=== PATIENT | male | born 1975 | race Caucasian/White ===

== ENCOUNTER → 2023-04-25 09:54 | Outpatient (BNVA) | payer OTHER, SELFPAY | PROVIDERS: Visit Provider Registered Nurse | DX: R06.02 Shortness of breath (principal); Z12.5 Encounter for screening for malignant neoplasm of prostate; R53.83 Other fatigue | CPT/HCPCS: 80053; 80061; 84403; 85025; G0103 ==

== ENCOUNTER 2023-10-16 11:41 | Inpatient (IN) | payer SELFPAY ==
[2023-10-16] VITALS (34 sets, daily range): BP systolic 91–154; BP diastolic 54–94; PULSE 75–98; RESP 12–21; TEMP 36.5–36.9; O2SAT 90–97; BMI 28.7; BMI 31.1
--- NOTE | 2023-10-16 11:43 | ECG_ITS ---
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 Measurements Intervals [place] Rate: 93 P: 48 IA: 145 QRS: 28 QRSD: 90 T: 8 QT: 307 QTc: 383 Interpretive Statements SINUS RHYTHM POSSIBLE INFERIOR MYOCARDIAL INFARCTION , OF INDETERMINATE AGE [30 ms Q WAVE IN II/aVF] No previous ECG available for comparison Electronically Signed On 10-17-2023 8:49:00 AIR PRESS OPERATOR by Nasir Aragon M.D. [id number]
--- NOTE | 2023-10-16 11:49 | XRR_ITS ---
PROCEDURE INFORMATION: Exam: XR Chest Exam date and time: 10/16/2023 12:02 PM Age: 48 years old Clinical indication: Pain; Chest pressure; Additional info: Cp TECHNIQUE: Imaging protocol: Radiologic exam of the chest. Views: 1 view. COMPARISON: No relevant prior studies available. FINDINGS: Lungs: Unremarkable. No consolidation. Pleural spaces: Unremarkable. No pleural effusion. No pneumothorax. Heart/Mediastinum: Unremarkable. No cardiomegaly. Bones/joints: Unremarkable. XR/XR chest 1V portable [id number] IMPRESSION: No acute findings.
--- NOTE | 2023-10-16 11:57 | ECG_ITS ---
[facility] Test Date: 2023-10-16 Pat Name: Meño Smyth Department: Room: 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 Measurements Intervals [place] Rate: 101 P: 55 MT: 164 QRS: 37 QRSD: 89 T: 22 QT: 302 QTc: 393 Interpretive Statements SINUS TACHYCARDIA NONSPECIFIC ST & T-WAVE ABNORMALITY Compared to ECG 10/16/2023 11:43:34 T-wave abnormality now present Sinus rhythm no longer present Myocardial infarct finding no longer present Electronically Signed On 10-17-2023 8:48:51 AUTO HAULER by Nasir Aragon M.D. [id number]
[2023-10-16] MEDS: clopidogrel 300 mg Tablet 600 MG PO (11:59)
[2023-10-16] MEDS: aspirin 325 mg Tablet PO (12:00)
--- NOTE | 2023-10-16 12:01 | ED_ITS ---
HPI - Chest Pain 2 General: Chief Complaint: Chest Pain Stated Complaint: chest pains, sob Time Seen by Provider: 10/16/23 11:53 Source: patient Mode of arrival: ambulatory Limitations: no limitations History of Present Illness: 48-year-old male states that he had some chest pains over the last week states that today his 's car broke down he was work on started having worsening chest pain that radiated to his jaw he states it is improved but still having a slight pain he rates it a 2 out of 10 no history of heart disease he is a smoker. Associated symptoms: Deny abdominal pain, dyspnea, fever(s), nausea or vomiting Review of Systems 2 Const: Denies: fever(s), chills, body aches or change in appetite ENMT: Denies: throat pain or dental pain Card: Reports: chest pain Resp: Denies: dyspnea GI: Denies: abdominal pain, nausea, vomiting or diarrhea Musc: Denies: neck pain or back pain Skin/Breast: Denies: rash Neuro: Denies: headache(s) PFSH ED 2 PFSH: Medical History Family history of prostate cancer in father Family History Father Cancer Diabetes Mother Lung disease Denies family history of Hyperlipidemia Chronic kidney disease (CKD) Stroke Social History Smoking and tobacco/nicotine status: current every day tobacco/nicotine user Alcohol intake: current Alcohol intake frequency: holidays/special occasions only Substance/Drug Use: never Adopted: No Caregiver/support person: No Lives independently: No Household members: spouse Marital status: service: No Current occupational status: employed Sexually active: Yes Do you think of yourself as: Straight/Heterosexual Current gender identity: Male Physical Exam 2 Const: COMMON NORMALS: patient oriented x3 HENMT: COMMON NORMALS: normocephalic and atraumatic HEAD & SCALP: n ormocephalic and atraumatic Neck/C-Spine: COMMON NORMALS: full ROM and supple Chest: COMMONS NORMALS: normal inspection of the chest Resp: COMMON NORMALS: normal respiratory effort Cardio: COMMON NORMALS: regular rate, regular rhythm and No murmurs present (Cardio) RATE: regular rate RHYTHM: regular rhythm GI: COMMON NORMALS: Normal to inspection, nondistended, normoactive bowel sounds present, Soft to palpation, non-tender and no masses PALPATION: Yes Soft to palpation Extremity: COMMON NORMALS: normal to inspection and full ROM Neuro: COMMON NORMALS: patient oriented x3, moves all extremities and no focal motor deficits Psych: COMMON NORMALS: mental status grossly normal, Normal thought process present and cooperative THOUGHT PROCESS: Normal thought process present Skin: COMMON NORMALS: no rashes or lesions noted and no wounds GENERAL SKIN EXAM: no rashes or lesions noted Course 2 Vital Signs: Vital signs: Vital Signs Temperature 98.2 F 10/16/23 11:53 Pulse Rate 93 10/16/23 11:53 Respiratory Rate 14 10/16/23 11:53 Blood Pressure 154/94 10/16/23 11:53 Pulse Oximetry 95 10/16/23 11:53 Oxygen Delivery Me thod Room Air 10/16/23 11:53 MDM - Chest Pain Medical Decision Making Patient presents here with an ST elevation [place] Float Phlebotomist was activated patient given aspirin heparin and Plavix and will go to the Float Phlebotomist. Medical Records I reviewed the patient's medical records. Lab Data I reviewed the patient's lab results. 10/16/23 11:58 10/16/23 11:58 All radiology interpretation(s) finalized by discharge EKG Data EKG 1: I personally reviewed and interpreted this EKG as follows: EKG interpretation date: 10/16/23 EKG interpretation time: 11:43 Interpretation: nsr hr [address] or t wave abnormalities qrs 90 qtc 358 Discharge Plan Discharge Patient Disposition: Admitted As Inpatient Clinical Impression: ST elevation myocardial infarction (STEMI) Condition: Stable Prescriptions: No Action fluticasone propion-salmeterol [Advair HFA] 115-21 mcg/actuation HFA aerosol inhaler 2 puff inhalation BID 30 Days Qty: 12 2RF Rx Instructions: call if not affordable sulfamethoxazole-trimethoprim [Bactrim DS] 800-160 mg tablet 1 tab PO BID 7 Days Qty: 14 0RF Referrals: Mari Miguel FNP [Primary Care Provider] - Coding Level of Care Code ED Heel Seat Fitter Machine for [facility] Molly
[2023-10-16 12:02] LABS: Basophils # 0.1 10^3/uL (0.0-0.1); Basophils % 0.8 %; Eosinophils # 0.3 10^3/uL (0.0-0.8); Eosinophils % 1.7 %; Hematocrit 44.6 % (37-53); Lymphocytes # 4.1 10^3/uL (0.8-4.8); Lymphocytes % 26.7 %; Mean Corpuscular Hemoglobin 31.8 pg (27-33); Mean Platelet Volume 8.5 fL (7.4-10.4); Monocytes # 2.1 10^3/uL (0.2-0.9); Monocytes % 13.8 %; Neutrophils # 8.76 10^3/uL (1.8-7.7); Neutrophils % 56.5 %; Nucleated Red Blood Cells % 0 %; Platelet Count 354 10^3/cmm (157-399); Red Cell Distribution Width 12.4 % (12.1-15.1); White Blood Count 15.48 10^3/uL (3.29-11.43)
[2023-10-16] MEDS: heparin 5,000 unit/mL INJ 1 mL 4000 UNIT IVP (12:03)
--- NOTE | 2023-10-16 12:08 | P.HP_ITS ---
Providers/Chief Complaint 2 Admitting Physician: Nasir Aragon MD/ Interventional cardiology Primary Care Provider: SAMIR Wilson Chief Complaint: chest pains, sob History of Present Illness Meño Smyth is a 48 year old male with no significant prior cardiac history has presented to hospital with 1 hour of severe substernal chest pain rating to the jaw. It started when he was working on his car. EKG performed in the ER showing ST elevation in anterior/anterolateral leads. Nonspecific ST changes are seen in inferior leads as well. He says that chest pain has improved. Review of Systems 2 Const: Denies: fever(s), chills, body aches or change in appetite ENMT: Denies: throat pain or dental pain Card: Reports: chest pain Resp: Denies: dyspnea GI: Denies: abdominal pain, nausea, vomiting or diarrhea Musc: Denies: neck pain or back pain Skin/Breast: Denies: rash Neuro: Denies: headache(s) Medications/Allergies Home Medications Medication Instructions Recorded Confirmed Last Taken Type fluticasone propionate 115 2 puff inhalation BID 30 days #12 04/25/23 05/31/23 Unknown Rx mcg-salmeterol 21 mcg/actuation grams HFA inhaler (Advair HFA) sulfamethoxazole 800 1 tab PO BID 7 days #14 tabs 05/31/23 05/31/23 Unknown Rx mg-trimethoprim 160 mg tablet (Bactrim DS) Allergies Allergy/AdvReac Type Severity Reaction Status Date / Time codeine Allergy temp Verified 10/16/23 11:53 Penicillins Allergy Unknown Verified 10/16/23 11:53 PFSH Acute 2 PFSH: Medical History Family history of prostate cancer in father Family History Father Cancer Diabetes Mother Lung disease Denies family history of Hyperlipidemia Chronic kidney disease (CKD) Stroke Social History Smoking and tobacco/nicotine status: current every day tobacco/nicotine user Alcohol intake: current Alcohol intake frequency: holidays/special occasions only Substance/Drug Use: never Adopted: No Caregiver/support person: No Lives independently: No Household members: spouse Marital status: service: No Current occupational status: employed Sexually active: Yes Do you think of yourself as: Straight/Heterosexual Current gender identity: Male Vitals/I&O/Wt Last Vital Signs Temp 98.2 F 10/16/23 11:53 Pulse 98 10/16/23 12:04 Resp 18 10/16/23 12:04 BP 146/89 10/16/23 12:04 Pulse Ox 96 10/16/23 12:04 O2 Del Method Room Air 10/16/23 12:04 Weight last 48 hrs Weight 200 lb Physical Exam 2 Narrative: GENERAL: Patient is alert, awake and oriented x3. [] NECK: No jugular vein distension. [] HEENT: No cyanosis. No icterus. No pallor. [] HEART: Regular S1 and S2. No murmur, rub or gallop. [] LUNGS: Clear to auscultate bilaterally. [] CENTRAL NERVOUS SYSTEM: Grossly nonfocal. [] EXTREMITIES: Lower extremities with no edema bilaterally. Data 10/16/23 11:58 10/16/23 11:58 A&P Assessment and plan (1) ST elevation myocardial infarction (STEMI): Plan Patient has presented with chest pain and EKG is consistent with anterior ST elevation FL. Inferior leads also have equivocal changes. Will emergently take patient to cardiac Dairy Helper. Aspirin and Plavix loaded. IV heparin bolus given. We will order echocardiogram. Attestations 2 Medical Necessity Statement*: Care expected to cross 2 midnights. Patient has presented with ST elevation FL and will be taken to cardiac laborer filter plant emergently. Coding Level of Care Code Acute Code for [facility] Molly Diagnoses ST elevation myocardial infarction (STEMI) I21.3
--- NOTE | 2023-10-16 12:09 | PC.NURSE ---
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 c/o pain radiating into both sides of jaw, both arms. reports headache as his only associated symptom. bilateral radial pulse 3+. skin pwd. chest pain 0/10 at this time.
--- NOTE | 2023-10-16 12:11 | XACV_ITS ---
Ht: 178 cm Wt: 91 kg BSA: 2.14 m2 Gender: Male : 1975 Any Known Allergies: Penicillins Exam Priority: Routine Indication(s): - Acute DC with elevated troponin Procedure(s): Procedure Description: Diagnostic procedure Procedure Description: PCI procedure Procedure Description: Drug Eluting Coronary Stent Procedure Description: PTCA Procedure Description: Miscellaneous Procedure Description: ACT Procedure Description: Coronary Angiography Diagnostic Cath Status: Emergency Diagnostic Findings * Left Main has no significant disease. * Circumflex has mild luminal irregularities. * 1st Diagonal: significant 80% stenosis, OCTAVIO: 3 flow. This is large sized artery. Dual LAD system. * Posterior Descending Right: total thormbotic occlusion, OCTAVIO: 0 flow. * Mid Left Anterior Descending: significant 80% stenosis, OCTAVIO: 3 flow. * Coronary angiography shows right dominance. PCI Status: Emergency PCI Indication: Immediate PCI for STEMI Interventional Findings * Procedure detail: As more significant EKG changes were in the LAD system, we first engaged left main artery however because as there was flow present in all vessels, we switched to RCA immediately. We engaged RCA with JR4 guide catheter. IV heparin was administered to maintain anticoagulation. 0.014 run-through guidewire was used to cross totally occluded PDA. This was followed by predilation with a 2.25 x 12 mm semicompliant balloon. We then placed 2.25 x 15 mm resolute [place] drug-eluting stent. At this time final angiogram showed excellent stent expansion, no residual stenosis and OCTAVIO-3 flow. We then turned our attention to LAD and diagonal artery stenosis. 0.014 run-through guidewire was used to cross the LAD stenosis. Another wire was used to cross the diagonal artery stenosis. We placed a 2.5 x 15 mm resolute [place] drug-eluting stent in mid LAD. We then placed 2.75 x 26 mm resolute [place] drug eluting stent from LAD into diagonal artery. This was followed by post dilation of proximal segment of stent with 3.0 x 8 mm NC balloon. At this time final angiogram was performed that showed excellent stent expansion, OCTAVIO-3 flow and no residual stenosis. Guidewire and guide catheter were removed. Patient left the Human Resources Analyst in a stable condition.. * Mid Left Anterior Descendin% stenosis treated with a MDT R HENRIET[place] 2.5X15 ROMAN. 0% residual stenosis, OCTAVIO: 3 flow. * 1st Diagonal: 80% stenosis treated with a MDT R HENRIETTA 2.75X26 ROMAN, and MDT NC EUPHORA RX 3.12Y24TV BALLOON. 0% residual stenosis, OCTAVIO: 3 flow. * Posterior Descending Right: 100% stenosis treated with a AB TREK 2.25X12 RX BALLOON, and MDT R HENRIETTA 2.25X15 ROMAN. 0% residual stenosis, OCTAVIO: 3 flow. Conclusions 1. Total thrombotic occlusion of PDA s/p successful revascularization with 1 stent. Severe stenosis of mid LAD s/p successful revascularization with 1 stent. Severe stenosis of large sized diagonal artery s/p successful revascularization with 1 stent.. 2. Mid Left Anterior Descending was treated with a Drug Eluting Stent. 3. 1st Diagonal was treated with a Drug Eluting Stent, and Balloon. 4. Posterior Descending Right was treated with a Balloon, and Drug Eluting Stent. Recommendations * Transfer to ICU. * Dual antiplatelet therapy with aspirin and plavix. * High intensity statin therapy. * Outpatient cardiology follow up in 4 weeks. Interventional RX Recommendation: PCI w/o planned CABG Diagnostic RX Recommendation: PCI w/o planned CABG Anticoagulation: Heparin Pressures Phase:Rest AO : 88 / 66 ( 80 ) @ 12:32:00 PM 103 / 89 ( 97 ) @ 12:37:00 PM 116 / 77 ( 96 ) @ 12:39:00 PM 100 / 80 ( 91 ) @ 12:43:00 PM 86 / 71 ( 79 ) @ 12:51:00 PM 103 / 70 ( 84 ) @ 1:09:00 PM 91 / 73 ( 83 ) @ 1:20:00 PM Clinical Evaluation EBL: 5mL-10mL Procedural Details Procedure Consent Obtained. Pre-Procedure Time Out. Identified patient by full name and date of as verbalized by the patient/guarantor. Does the consent match the physician's order: N/A Emergent; Informed Consent not obtained due to time critical life threat. Accurate & Complete Informed Consent: N/A Emergent; Informed Consent not obtained due to time critical life threat. Inpatient/Outpatient History & Physical on Chart: N/A Emergent; Informed Consent not obtained due to time critical life threat. If H&P is completed, is and addenduem needed: N/A Emergent; Informed Consent not obtained due to time critical life threat; If yes, is the addendum complete: N/A Emergent; Informed Consent not obtained due to time critical life threat. Visualize and Verify Site with Patient/Guarantor: N/A. Relevant Radiology Images available: N/A Emergent; Informed Consent not obtained due to time critical life threat. The risks, benefits, and alternatives of sedation and/or procedure were discussed by physician. The patient agrees to continue. Procedure started. [facility] Clinical Fraility Score: 3: Managing Well. Human Resources Analyst Indications: ACS <= 24 hours. Chest Pain Symptom Assessment: Typical Angina Symptoms. Cardiovascular Instability: Yes, if yes, Persistant Ischemic Symptoms. Correct patient, site and procedure confirmed by cath team. Current diagnosis: STEMI. PERRLA. Strong, equal hand surveillance sensor operator bilaterally. Lungs clear x 5 lobes. IV Site on Arrival: 20 gauge in the right forearm. IV Site on Arrival: 18 gauge in the right anticubital. IV Site on Arrival: 18 gauge in the left anticubital. IV Fluids: 0.9% NaCl at KVO. 0 mL infused prior to labor union business representative. Pre Procedural Pulses: bilateral radial was 3+. Oxygen started at 2liters/min via nasal canula. right groin was prepped with chloroprep then draped in the usual sterile fashion. right radial was prepped with chloroprep then draped in the usual sterile fashion. Physician notified. Baseline sample Acquired. HR: 94 BPM. Patient's family in the labor union business representative waiting room. Dr. Aragon will update at the completion of the procedure. Equipment: 6F - Radial. Cardiac Cath Pack. ACIST Manifold Kit Model BT 2000. Heparinized Saline (2 units/mL), 1000 mL bag. Physician arrived. Physician scrubbed in. Immediate Pre-Procedure Time Out. Correct Patient: N/A Emergent; Informed Consent not obtained due to time critical life threat; Correct Procedure: N/A Emergent; Informed Consent not obtained due to time critical life threat; Correct Site: N/A Emergent; Informed Consent not obtained due to time critical life threat; Correct Patient Position: N/A Emergent; Informed Consent not obtained due to time critical life threat; Correct Supplies: N/A Emergent; Informed Consent not obtained due to time critical life threat; Dried Flammable Prep: N/A Emergent; Informed Consent not obtained due to time critical life threat; Blood Products Available: N/A Emergent; Informed Consent not obtained due to time critical life threat;. Lidocaine 1% infiltrated to the right radial. Arterial access obtained. 6 vietnamese XB 3.5 guide catheter was inserted over the exchange J wire. Cine of the LCA performed. AP pads placed on the patient. Guide catheter out over the exchange J wire. A 5 vietnamese JR4 catheter in over the exchange J wire. Multiple views taken of right coronary artery. Catheter removed over the exchange J wire. 6 vietnamese JR 4 guide catheter was inserted over the exchange J wire. Runthrough guidewire was advanced through the guide catheter to lesion in the PDA. Critical troponin of 343 was received from the lab. Dr. Aragon was notified with no new orders received. A 2nd Runthrough guidewire was advanced through the guide catheter to lesion in the distal RCA. Inflation number : 1 A AB TREK 2.25X12 RX BALLOON was prepped and advanced across the R PDA , then inflated to 8 JULIO for 0:10 seconds. Inflation number: 2 The AB TREK 2.25X12 RX BALLOON was reinflated across the R PDA, to 10 JULIO for 0:10 seconds. Balloon out. Results checked. PCI Indication : Immediate PCI for STEMI. Inflation Number : 3 A MDT R HENRIETTA 2.25X15 ROMAN -Lot Number# [id number] was prepped and advanced across the R PDA. The stent was deployed at 12 JULIO for 0:17 seconds. Exp . Results checked. Both guidewires out. ACT drawn. Results out of range high. Guide catheter out over the exchange J wire. Unable to further use right radial access site due to spasm. Will move to groin access. Lidocaine 1% infiltrated to the right groin. Arterial access obtained with micropuncture set. 6 vietnamese XB 3.5 guide catheter was inserted over the exchange J wire. Multiple views taken of left coronary artery. Runthrough guidewire was advanced through the guide catheter to lesion in the diaganol. A 2nd Runthrough guidewire was advanced through the guide catheter to lesion in the mid LAD. Inflation Number : 1 A MDT R HENRIETTA 2.5X15 ROMAN -Lot Number# [id number] was prepped and advanced across the Mid LAD. The stent was deployed at 12 JULIO for 0:28 seconds. Exp . Stent balloon out over wire. Mid LAD Runthrough wire out. Inflation number: 2 The stent balloon was then re-inflated across the Mid LAD to 12 JULIO for 0:28 seconds. Inflation Number : 1 A MDT R HENRIETTA 2.75X26 ROMAN -Lot Number# [id number] was prepped and advanced across the 1st Diag. The stent was deployed at 12 JULIO for 0:13 seconds. Exp . Stent balloon and wire out. Results checked. Inflation number : 2 A MDT NC EUPHORA RX 3.26H53EW BALLOON was prepped and advanced across the 1st Diag , then inflated to 14 JULIO for 0:12 seconds. Balloon out. Wire out. Results checked. ACT drawn. Results out of range high. Will redraw. Guide catheter out over the exchange J wire. A 5 vietnamese JR4 catheter in over wire. Cine of the RCA performed. A Right femoral angiogram was performed to determine safe placement of closure device. A TR Band was successful obtaining hemostatsis at the Right Radial artery insertion site. A Suture was successful obtaining hemostatsis at the Right Femoral artery insertion site. Sheath(s) sutured into position with 2-0 silk and sterile 4x4's and Op-site applied over the site. No oozing or signs and symptoms of hematoma noted. Arterial sheath flushed and connected to tranducer and pressure bag with heparinized saline. Post Procedure: bilateral dorsalis pedis pulse Doppled. Post Procedure: bilateral posterior tibial pulse Doppled. Post Procedure: bilateral radial pulse 3+. PERRLA. Strong, equal hand surveillance sensor operator bilaterally. No VTE prophylaxis required. Post-op diagnosis: Total thrombotic occlusion of the right PDA s/p PCI with one stent. Severe stenosis of the mid LAD and Diagonal s/p PCI with one stent to each vessel. Complications: none. Estimated blood loss: 5mL-10mL. Responsiveness - Normal response to verbal stimuli; alert and oriented, PERRLA. Airway - Unaffected, no intervention required; spontaneous ventilation. Circulation: W/N/L, pulses unchanged. Nausea/Vomiting: No. PCI Indication: STEMI. ACT drawn. Results 215 seconds. Therapeutic limits - pre-heparin administration 90-150 seconds and monitoring heparin during a vascular procedure >250 seconds. ACT drawn. Results 196 seconds. Therapeutic limits - pre-heparin administration 90-150 seconds and monitoring heparin during a vascular procedure >250 seconds. Medication's Wasted: Nitro = 49.2 mg. Medication's Wasted: Heparin = 1000 units. Medication's Wasted: Other = Versed 1 mg. Medication's Wasted: Other = Fentanyl 50 mcg. Total IV fluids: 350 mL. Procedure completed. Patient transferred by bed to ICU. Vital chart was stopped. Access Site Site: Right Radial artery Sheath Size: 6 Fr Hemostasis Method: TR Band Hemostasis Success: Successful Site: Right Femoral artery Sheath Size: 6 Fr Hemostasis Method: Suture Hemostasis Success: Successful Procedure Medications Start: 12:27 PM Stop: 12:27 PM Medication: Versed Amount: 1 mg Route: I.V. Start: 12:27 PM Stop: 12:27 PM Medication: Fentanyl Amount: 25 mcg Route: I.V. Start: 12:29 PM Stop: 12:29 PM Medication: Nitrogylcerin Amount: 200 mcg Route: I.A. Start: 12:30 PM Stop: 12:30 PM Medication: Heparin Amount: 5000 units Route: I.V. Start: 12:31 PM Stop: 12:31 PM Medication: Versed Amount: 1 mg Route: I.V. Start: 12:38 PM Stop: 12:38 PM Medication: Fentanyl Amount: 25 mcg Route: I.V. Start: 12:42 PM Stop: 12:42 PM Medication: Versed Amount: 1 mg Route: I.V. Start: 12:51 PM Stop: 12:51 PM Medication: Versed Amount: 1 mg Route: I.V. Start: 12:51 PM Stop: 12:51 PM Medication: Fentanyl Amount: 25 mcg Route: I.V. Start: 12:51 PM Stop: 12:51 PM Medication: Heparin Amount: 1000 units Route: I.V. Start: 12:54 PM Stop: 12:54 PM Medication: Nitrogylcerin Amount: 200 mcg Route: I.A. Start: 12:55 PM Stop: 12:55 PM Medication: Fentanyl Amount: 25 mcg Route: I.V. Start: 12:57 PM Stop: 12:57 PM Medication: Verapamil Amount: 5 mg Route: I.A. Start: 12:57 PM Stop: 12:57 PM Medication: 0.9% Saline Amount: 250 ml Route: I.V. bolus Start: 12:59 PM Stop: 12:59 PM Medication: Nitrogylcerin Amount: 200 mcg Route: I.A. Start: 1:08 PM Stop: 1:08 PM Medication: Versed Amount: 1 mg Route: I.V. Start: 1:21 PM Stop: 1:21 PM Medication: Fentanyl Amount: 25 mcg Route: I.V. Start: 1:28 PM Stop: 1:28 PM Medication: Nitrogylcerin Amount: 200 mcg Route: I.C. Start: 1:29 PM Stop: 1:29 PM Medication: Fentanyl Amount: 25 mcg Route: I.V. Start: 1:46 PM Stop: 1:46 PM Medication: Heparin Amount: 2000 units Route: I.V. I, the attending physician, have reviewed and verified all procedure medications. Yes, all medications given per verbal order Report Signatures Finalized by Nasir Aragon MD on 10/26/2023 12:22 PM
--- NOTE | 2023-10-16 12:20 | PC.NURSE ---
pt to labor expediter [id number]
[2023-10-16 12:24] LABS: Alanine Aminotransferase 24 U/L (0-41); Albumin Level 4.1 g/dL (3.5-5.2); Alkaline Phosphatase 61 U/L (40-130); Aspartate Amino Transferase 36 U/L (0-40); Blood Urea Nitrogen 10 mg/dL (6-20); Calcium 9.2 mg/dL (8.5-10.5); Carbon Dioxide 23 mmol/L (22-29); Chloride 102 mmol/L (98-107); Creatinine Clr Calc Pharmacy 111.2322; Globulin 3.1 g/dL (1.3-4.6); Glomerular Filtration Rate 89.3 mL/min (90-130); Glucose 97 mg/dL (65-115); Lipase 56 U/L (13-60); Osmolality Calculated 283 mOsm/kg (285-295); Sodium 137 mmol/L (136-145); Total Bilirubin 0.4 mg/dL (0.15-1.2); Total Protein 7.2 g/dL (6.6-8.7)
--- NOTE | 2023-10-16 12:25 | PC.PHAR ---
pts verified pts medications-states the pt uses his advair prn and not other prescription medications only the otcs entered
[2023-10-16 12:41] LABS: Troponin(5th) Baseline 343 ng/L (0-15)
--- NOTE | 2023-10-16 14:11 | ECG_ITS ---
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 Measurements Intervals [place] Rate: 85 P: 63 LA: 167 QRS: 6 QRSD: 85 T: -22 QT: 336 QTc: 402 Interpretive Statements SINUS RHYTHM WITH SINUS ARRHYTHMIA NONSPECIFIC T-WAVE ABNORMALITY Compared to ECG 10/16/2023 11:43:34 T-wave abnormality now present Myocardial infarct finding no longer present Electronically Signed On 10-17-2023 9:36:59 HAND REAMER by Nasir Aragon M.D. [id number]
--- NOTE | 2023-10-16 14:12 | CTR_ITS ---
PROCEDURE INFORMATION: Exam: CT Head With Contrast Exam date and time: 10/16/2023 2:28 PM Age: 48 years old Clinical indication: Altered mental status/memory loss; Additional info: Rule out bleed TECHNIQUE: Imaging protocol: Computed tomography of the head with intravenous contrast. Radiation optimization: All CT scans at this facility use at least one of these dose optimization techniques: automated exposure control; mA and/or kV adjustment per patient size (includes targeted exams where dose is matched to clinical indication); or iterative reconstruction. COMPARISON: No relevant prior studies available. RADIATION DOSE METRICS: Total DLP (mGy-cm): 1097.28 FINDINGS: Brain: The examination is performed after contrast has been administered intravascularly. Therefore, this is a CT of the brain with contrast. No images of the brain prior to contrast administration are provided. There is no obvious large intracranial hemorrhage causing mass effect, but the visualized contrast makes it difficult to exclude a subtle acute intracranial hemorrhage by this CT. There is no pathologic contrast enhancement. No CT evidence of mass effect or acute infarct. Normal ward-white matter differentiation. Otherwise, unremarkable. Cerebral ventricles: Unremarkable. No ventriculomegaly. Bones/joints: Unremarkable. No acute fracture. Paranasal sinuses: Moderate sinusitis. Mastoid air cells: Visualized mastoid air cells are well aerated. Soft tissues: Unremarkable. CT/CT head wo con* [id number] IMPRESSION: 1. Moderate sinusitis. 2. Otherwise, negative contrast-enhanced CT of the brain. See above disclaimer regarding intracranial hemorrhage.
[2023-10-16] MEDS: fentaNYL 50 mcg/mL INJ 2mL 25 MCG IVP (14:16)
--- NOTE | 2023-10-16 14:28 | PM.MISC ---
Miscellaneous Note Purpose of Documentation: Brief note Note: Patient had emergent cardiac cath that showed total thrombotic occlusion of PDA s/p PCI with 1 stent. Mid LAD has severe 70-80% stenosis s/p PCI with 1 stent. Large sized diagonal artery has severe stenosis s/p PCI with 1 stent. During the procedure patient started complaining of headache, that got worse when he came to ICU. He says it is 8/10 in intensity. Also has some chest discomfort that was present during the procedure however coronary arteries were patent. RCA was checked again at the end to ensure that stent is patent and is not the reason for chest pain EKG in the ICU is showing no significant changes from before. Given severe headache, ordered stat CT head to rule out bleed. We will also obtain CTA chest to rule out aortic dissection. Family updated.
--- NOTE | 2023-10-16 14:29 | CTR_ITS ---
PROCEDURE INFORMATION: Exam: CTA Chest With Contrast Exam date and time: 10/16/2023 2:33 PM Age: 48 years old Clinical indication: Other: Chest/abdomin; Chest wall pain; Additional info: Post cath chest pain TECHNIQUE: Imaging protocol: Computed tomographic angiography of the chest with contrast. Exam focused on the arteries. 3D rendering (Not supervised by radiologist): MIP and/or 3D reconstructed images were created by the technologist. Radiation optimization: All CT scans at this facility use at least one of these dose optimization techniques: automated exposure control; mA and/or kV adjustment per patient size (includes targeted exams where dose is matched to clinical indication); or iterative reconstruction. Contrast material: [id number]; Contrast volume: 100 ml; Contrast route: INTRAVENOUS (IV); COMPARISON: CR (CHEST, ) 10/16/2023 12:02 PM RADIATION DOSE METRICS: Total DLP (mGy-cm): 1342.22 unremarkable thoracic aorta and aortic root. FINDINGS: Pulmonary arteries: Normal. No pulmonary emboli. Great vessels off aortic arch: Unremarkable great vessels from the aortic arch. Aorta: Unremarkable. No aortic aneurysm. No aortic dissection. Lungs: Small amount of bilateral dependent atelectasis. A few 2 mm and smaller noncalcified solid nodules scattered in both lungs. Very mild bilateral bullous emphysema. Pleural spaces: Unremarkable. No pneumothorax. No pleural effusion. Heart: Normal heart size. No evidence of right heart strain. The right ventricular to left ventricular ratio is 0.89. Coronary arteries: [id number] amount of coronary artery calcification. Lymph nodes: Unremarkable. No enlarged lymph nodes. Bones/joints: Mild and moderate multilevel spondylosis. Acute appearing fractures of the lateral left 10 and 11 ribs. No other thoracic fractures. Otherwise, unremarkable. Soft tissues: Otherwise, unremarkable. months. (Reference: Madie). 3. Small amount of bilateral dependent atelectasis. 4. No other acute findings. 5. Additional details as above. COMMENTS: The presence of pulmonary emphysema on CT is an independent risk factor for lung cancer. In the absence of a history or active diagnosis of lung cancer, it is recommended that this patient with emphysema be evaluated for enrollment in a low dose CT lung cancer screening program. REFERENCES: Madie Armijo, et al. Guidelines for Management of Incidental Pulmonary Nodules Detected on CT Images: From the Fleischner Society 2017. Radiology. 2017;284(1):228-243. PROCEDURE INFORMATION: Exam: CT Abdomen And Pelvis With Contrast Exam date and time: 10/16/2023 2:33 PM Age: 48 years old Clinical indication: Other: Chest/abdomin; Chest wall pain; Additional info: Post cath chest pain TECHNIQUE: Imaging protocol: Computed tomography of the abdomen and pelvis with contrast. Radiation optimization: All CT scans at this facility use at least one of these dose optimization techniques: automated exposure control; mA and/or kV adjustment per patient size (includes targeted exams where dose is matched to clinical indication); or iterative reconstruction. Contrast material: [id number]; Contrast volume: 100 ml; Contrast route: INTRAVENOUS (IV); COMPARISON: CR (CHEST, ) 10/16/2023 12:02 PM RADIATION DOSE METRICS: Total DLP (mGy-cm): 1342.22 FINDINGS: Lungs: See separate report. Liver: Normal. No mass. Gallbladder and bile ducts: Lobulated soft tissue density projecting within the gallbladder. This is likely noncalcified gallstones, but cholangiocarcinoma is a possibility, so gallbladder ultrasound should be performed. Other possibilities include this being sludge or blood. Otherwise, unremarkable. Pancreas: Normal. No ductal dilation. Spleen: Normal. No splenomegaly. Adrenal glands: Normal. No mass. Kidneys and ureters: Normal. No hydronephrosis. Stomach and bowel: Unremarkable. No obstruction. No mucosal thickening. Appendix: No evidence of appendicitis. Intraperitoneal space: Unremarkable. No free air. No significant fluid collection. Vasculature: Tiny amount of arterial calcification. Right common femoral artery catheter terminating in the right external iliac artery. Otherwise, unremarkable vasculature. Lymph nodes: Unremarkable. No enlarged lymph nodes. Urinary bladder: Unremarkable as visualized. Reproductive: Unremarkable as visualized. Bones/joints: Mild and moderate multilevel spondylosis. No lumbar or pelvic fractures. Otherwise, unremarkable. Soft tissues: Unremarkable visualized body wall. Otherwise, unremarkable soft tissues. CT/CT angio chest w abd pel wo/w IMPRESSION: 1. Acute appearing fractures of the lateral left 10 and 11 ribs. 2. A few 2 mm noncalcified solid pulmonary nodules. For patients at low risk (minimal or absent history of smoking and of other known risk factors), no routine follow-up is indicated. For patients at high risk (history of smoking or of other known risk factors), consider optional CT Chest at 12 IMPRESSION: 1. Lobulated soft tissue density projecting within the gallbladder. This is most likely noncalcified gallstones, but could be cholangiocarcinoma. Other possibilities include sludge and blood. Gallbladder ultrasound is recommended. 2. No other acute findings. 3. Additional details as above.
[2023-10-16] MEDS: iohexol 350 mg/mL 500 mL Btl (per mL) IV (14:37)
[2023-10-16] MEDS: sodium chloride 0.9% 1,000 ML 100 ML IV (14:47)
--- NOTE | 2023-10-16 14:47 | USCV_ITS ---
Meño Smyth Age: 48 Gender: M : 1975 Exam Date: 10/16/2023 17:01 Ordering Phys: Nasir Aragon M.D ([email or web address]) Technologist: Jaguar Steinberg Exam Location: [facility] [place] Indication: EF BP: 117 / 86 HR: 52 Rhythm: Sinus Technical Quality: Adequate MEASUREMENTS (Male / Female) Normal Values 2D ECHO LVOT Diameter 2.0 cm LV Ejection Fraction MOD 2C 63.8 % LV Ejection Fraction 2C AL 0.0 % LA Diameter 3.1 cm RA Systolic Volume 4C AL 35.9 ml RA Systolic Volume 4C MOD 36.1 ml Aorta at Sinotubular Diameter 2.1 cm IVC Diameter 1.9 cm M-MODE LA Ao Ratio MM 1.2 AV Cusp Separation MM 1.5 cm DOPPLER AV Peak Velocity 117.0 cm/s LVOT Peak Velocity 81.0 cm/s AV Area Cont Eq vti 2.0 cm squared AV Area Cont Eq pk 2.2 cm squared MV Peak Velocity 233.0 cm/s MV Area PHT 6.1 cm squared Mitral E to A Ratio 0.9 TV Peak Velocity 154.5 cm/s TR Peak Velocity 164.0 cm/s TR Peak Gradient 10.8 mmHg TR Mean Velocity 120.0 cm/s TR Mean Gradient 6.6 mmHg TR Velocity Time Integral 38.8 cm PV Peak Velocity 84.0 cm/s RV Ejection Time 0.3 s FINDINGS Left Ventricle Left ventricle is normal in size. LV systolic function is normal with EF of 50 to 55%. No regional wall motion abnormalities are seen. Right Ventricle Normal in size and function Right Atrium Normal in size Left Atrium Normal in size Mitral Valve Mild mitral annular calcification seen. Trace mitral regurgitation. Aortic Valve Structurally normal aortic valve. No significant stenosis or regurgitation seen. Tricuspid Valve Trace tricuspid regurgitation. Insufficient TR jet to calculate RVSP. Pulmonic Valve Not well visualized Pericardium Normal Aorta Normal in size IVC Appears to be normal. CONCLUSIONS LV systolic function is normal with EF of 50 to 55%. Trace mitral regurgitation. Trace tricuspid regurgitation. No comparison studies are available. Nasir Aragon MD (Electronically Signed) Final Date: 17 October 2023 08:37 S
--- NOTE | 2023-10-16 14:58 | P.CONIM_ITS ---
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 Review of Systems 2 Const: Denies: fever(s) Eyes: Denies: change in vision ENMT: Denies: throat pain Card: Reports: chest pain Resp: Reports: dyspnea GI: Denies: abdominal pain : Denies: flank pain Musc: Denies: neck pain Skin/Breast: Denies: rash Medications/Allergies Home Medications Medication Instructions Recorded Confirmed Last Taken Type Vitamin D With K Gummies 1 tab PO DAILY 10/16/23 10/16/23 Unknown History cetirizine 10 mg tablet (Zyrtec) 10 mg PO DAILY 10/16/23 10/16/23 Unknown History fluticasone propionate 115 2 puff inhalation BID PRN unknown 10/16/23 10/16/23 Unknown History mcg-salmeterol 21 mcg/actuation HFA inhaler (Advair HFA) aspirin 81 mg tablet,delayed 81 mg PO DAILY #90 tabs 10/17/23 Unknown Rx release atorvastatin 40 mg tablet 40 mg PO BEDTIME #90 tabs 10/17/23 Unknown Rx clopidogrel 75 mg tablet 75 mg PO DAILY #90 tabs 10/17/23 Unknown Rx metoprolol tartrate 25 mg tablet 25 mg PO BID@0900,2100 #90 tabs 10/17/23 Unknown Rx nitroglycerin 0.4 mg sublingual 0.4 mg sublingual Q5M PRN Chest 10/17/23 Unknown Rx tablet Pain #30 tabs Allergies Allergy/AdvReac Type Severity Reaction Status Date / Time codeine Allergy temp Verified 10/16/23 11:53 Penicillins Allergy Unknown Verified 10/16/23 11:53 Current Medications Generic Name Dose Route Start Last Admin Trade Name Eliezer PRN Reason Stop Dose Admin Sodium Chloride 1,000 mls @ 100 mls/hr 10/16/23 14:30 10/16/23 14:47 Sodium Chloride 0.9% IV 100 mls/hr .Q10H SYD Administration PFSH Acute 2 PFSH: Medical History ST elevation myocardial infarction (STEMI) Family history of prostate cancer in father Family History Father Cancer Diabetes Mother Lung disease Denies family history of Hyperlipidemia Chronic kidney disease (CKD) Stroke Social History Smoking and tobacco/nicotine status: current every day tobacco/nicotine user Alcohol intake: current Alcohol intake frequency: holidays/special occasions only Substance/Drug Use: never Adopted: No Caregiver/support person: No Lives independently: No Household members: spouse Marital status: service: No Current occupational status: employed Sexually active: Yes Do you think of yourself as: Straight/Heterosexual Current gender identity: Male Vitals/I&O/Wt Last Vital Signs Temp 98.2 F 10/16/23 11:53 Pulse 80 10/16/23 14:21 Resp 12 10/16/23 14:16 BP 118/89 10/16/23 14:15 Pulse Ox 97 10/16/23 14:16 O2 Del Method Room Air 10/16/23 14:05 Weight last 48 hrs Weight 98.43 kg Weight 90.718 kg Physical Exam 2 Narrative: NIH 0 No sign of meningitis GCS [address] scan Hemodynamically stable Currently on room air Nonfocal neuroexam Abdomen soft TR band right wrist Data 10/17/23 04:00 10/17/23 04:00 A&P Assessment and plan (1) ST elevation myocardial infarction (STEMI): (2) Headache: Plan STEMI status post PCI 3 stents placed Monitor in ICU Chest pain radiating towards neck Starting from his shoulder blade No recent neck trauma No sign of aortic dissection clinically or on CT chest abdomen pelvis Will request carotid Doppler to rule out carotid dissection No pupillary asymmetry, no temporal area tenderness to suggest vasculitis Request D-dimer Gallbladder sludge Concern for mass Will request gallbladder ultrasound Monitor for any signs of contrast-induced nephropathy Patient received contrast on 10/15 during angiogram and then CTA chest abdomen pelvis. If headache persist may benefit from MRV to rule out cerebral venous thrombosis Rule out carotid dissection however suspicion is low Continue dual antiplatelet therapy Full code Cardiac diet Consult Attestations 2 Medical Necessity Statement: Further plan will be made after reviewing gallbladder ultrasound Diagnoses ST elevation myocardial infarction (STEMI) I21.3 Headache R51.9
--- NOTE | 2023-10-16 15:03 | USR_ITS ---
PROCEDURE INFORMATION: Exam: US Duplex Bilateral Extracranial Arteries; Complete; Carotid Arteries Exam date and time: 10/16/2023 5:35 PM Age: 48 years old Clinical indication: Screening exam; Additional info: Carotid dissection? TECHNIQUE: Imaging protocol: Real-time duplex ultrasound scan of the bilateral extracranial arteries combining ward scale, color Doppler and spectral waveform analysis with image documentation. Complete exam. Exam focused on the carotid arteries. COMPARISON: CT head wo con* [id number] 10/16/2023 2:28 PM FINDINGS: Right common carotid artery: Unremarkable. No occlusion or stenosis. Waveforms are normal. Right internal carotid artery: Unremarkable. No occlusion or stenosis. Waveforms are normal. Right ICA/CCA ratio: Within normal limits. Right external carotid artery: No stenosis in the origin. Right vertebral artery: Unremarkable. Antegrade flow. Left common carotid artery: Unremarkable. No occlusion or stenosis. Waveforms are normal. Left internal carotid artery: Unremarkable. No occlusion or stenosis. Waveforms are normal. Left ICA/CCA ratio: Within normal limits. Left external carotid artery: No stenosis in the origin. Left vertebral artery: Unremarkable. Antegrade flow. US/CV carotid duplex BI* [id number] IMPRESSION: No carotid arterial stenosis. REFERENCES: SRU CRITERIA. The degree of internal carotid artery stenosis is based on criteria defined by the Society of Radiologists in Ultrasound (SRU). Normal is no stenosis. Mild is less than 50% stenosis. Moderate is 50-69% stenosis. Severe is greater than 69% stenosis to near occlusion. Near occlusion is a markedly narrowed lumen. Total occlusion is no detectable patent lumen.
[2023-10-16] MEDS: metoprolol tartrate 25 mg Tablet PO ×2 (15:42→20:40)
[2023-10-16] MEDS: nicotine 21 mg Patch 1 PATCH TRANSDERMA (15:42)
--- NOTE | 2023-10-16 17:23 | PC.NURSE ---
Contacted Laboratory services on ETA of 1600 PTT.
[2023-10-16 18:05] LABS: Partial Thromboplastin Time 27.4 SECONDS (23.9-36.7)
[2023-10-16 18:51] LABS: Chol HDL Ratio 5.97 mg/dL (1.0-5.00); Cholesterol 221 mg/dL (0-200); HDL Cholesterol 37 mg/dL (60-100); LDL Cholesterol Calculated 148 mg/dL (50-129); Triglycerides 179 mg/dL (0-150)
--- NOTE | 2023-10-16 19:03 | PC.NURSE ---
TR band removed and dressing applied. No hemotoma formation, no bleeding. Pulses present.
[2023-10-16 19:04] LABS: D Dimer 0.34 ug/mLFEU (0-0.59)
[2023-10-16 19:52] LABS: Estmated Average Glucose 108; Hemoglobin A1C 5.4 % (4.0-6.0)
[2023-10-16 20:01] LABS: Troponin 5 6HR 957.4 ng/L (0-15); Troponin 5 6HR Delta 614.4 ng/L (0-12)
[2023-10-16] MEDS: atorvastatin 40 mg Tablet PO (20:40)
[2023-10-16 21:04] LABS: Amphetamines Screen Urine Negative (Negative); Barbiturates Screen Urine Negative (Negative); Benzodiazepines Screen Urine Negative (Negative); Cocaine Screen Urine Negative (Negative); Opiate Screen Urine Negative (Negative); PCP Screen Urine Negative (Negative); THC Screen Urine Negative (Negative)
[2023-10-16 22:47] LABS: Erythrocyte Sedimentation Rate 14 mm/hr (0-10)
[2023-10-16] MEDS: fentaNYL 50 mcg/mL INJ 2mL IVP (23:28)
--- NOTE | 2023-10-16 23:49 | PC.NURSE ---
Femoral Sheath pulled at 2254. Pressure held for 20 minutes. No hematoma noted. Strong distal pulses noted post sheath pull. Patient educated on post cardiac cath restrictions.
[2023-10-17] VITALS (42 sets, daily range): BP systolic 105–128; BP diastolic 64–100; PULSE 72–98; RESP 11–23; TEMP 36.7–36.8; O2SAT 91–97
[2023-10-17] MEDS: sodium chloride 0.9% 1,000 ML 100 ML IV (00:51)
[2023-10-17] MEDS: acetaminophen 325 mg Tablet 650 MG PO (03:12)
[2023-10-17] MEDS: enoxaparin 40 mg/0.4 mL Syringe SUBCUT (03:55)
[2023-10-17 04:39] LABS: Basophils # 0.1 10^3/uL (0.0-0.1); Basophils % 0.5 %; Eosinophils # 0.2 10^3/uL (0.0-0.8); Eosinophils % 1.7 %; Hematocrit 41.9 % (37-53); Lymphocytes # 2.6 10^3/uL (0.8-4.8); Lymphocytes % 19.7 %; Mean Corpuscular HGB Conc 34.1 g/dL (30-55); Mean Corpuscular Hemoglobin 31.8 pg (27-33); Mean Corpuscular Volume 93.1 fl (82-101); Mean Platelet Volume 8.8 fL (7.4-10.4); Monocytes # 1.8 10^3/uL (0.2-0.9); Monocytes % 13.2 %; Neutrophils # 8.59 10^3/uL (1.8-7.7); Neutrophils % 64.4 %; Nucleated Red Blood Cells % 0 %; Platelet Count 324 10^3/cmm (157-399); Red Cell Distribution Width 12.9 % (12.1-15.1); White Blood Count 13.33 10^3/uL (3.29-11.43)
[2023-10-17 05:06] LABS: Alanine Aminotransferase 26 U/L (0-41); Albumin Level 3.7 g/dL (3.5-5.2); Alkaline Phosphatase 53 U/L (40-130); Anion Gap 11.3 (5-19); Aspartate Amino Transferase 61 U/L (0-40); Blood Urea Nitrogen 8 mg/dL (6-20); Calcium 8.4 mg/dL (8.5-10.5); Carbon Dioxide 25 mmol/L (22-29); Chloride 103 mmol/L (98-107); Creatinine Clr Calc Pharmacy 148.5214; Globulin 2.6 g/dL (1.3-4.6); Glomerular Filtration Rate 119.4 mL/min (90-130); Glucose 94 mg/dL (65-115); Osmolality Calculated 278 mOsm/kg (285-295); Potassium 4.3 mmol/L (3.5-5.1); Sodium 135 mmol/L (136-145); Total Bilirubin 0.7 mg/dL (0.15-1.2); Total Protein 6.3 g/dL (6.6-8.7)
--- NOTE | 2023-10-17 06:00 | US_ITS ---
WS: [id number] RIGHT UPPER QUADRANT ULTRASOUND HISTORY: mass COMPARISON: CT 10/16/2023 Liver: 15.8 cm in length. Normal size cirrhotic liver. Lobulated surface of the liver. Portal Vein: Normal hepatopetal flow with monophasic waveform. Gallbladder: Gallbladder is normally distended. No wall thickening. Previously described abnormality in the gallbladder by CT is not identified by ultrasound . This may have been sludge along the sales ledger administrator ior gallbladder which has since resolved. CBD: 0.4 cm Pancreas: Normal size and echogenicity. Right kidney: 12.0 cm in length. Normal size and echogenicity. No hydronephrosis or mass. Aorta and IVC: Unremarkable abdominal aorta and IVC. No ascites. IMPRESSION: 1. No ultrasound abnormality within the gallbladder. The findings on the recent CT did appear real. This may be some sludge along the dependent gallbladder. Suggest interval short-term ultrasound follo w-up to reevaluate the gallbladder to ensure there is no abnormality. Suggest gallbladder ultrasound follow-up in 6 to 8 weeks. 2. Cirrhotic liver.
[2023-10-17 08:41] LABS: C Reactive Protein 11.8 mg/L (0.0-4.9)
--- NOTE | 2023-10-17 08:42 | P.DS_ITS ---
Discharge Providers Date of Admission: 10/16/23 13:58 Date of Discharge: October 17, 2023 Attending Provider at Admission: Nasir Aragon M.D Attending Provider at Discharge: Nasir Aragon M.D Primary Care Provider: SAMIR Wilson Diagnoses at Discharge Discharge Diagnosis (1) ST elevation myocardial infarction (STEMI): Status: Inactive (2) Headache: Status: Resolved Reason for Visit Reason for Visit: chest pains, sob Brief History: 48 year old male with no significant eliazar or cardiac history has presented to hospital with 1 hour of severe substernal chest pain rating to the jaw. It started when he was working on his car. EKG performed in the ER showing ST elevation in anterior/anterolateral leads. Nonspecific ST changes are seen in inferior leads as well. 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 He was found to have totally occluded PDA which underwent successful revascularization with 1 stent. Severe stenosis of mid LAD was treated with 1 stent. 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 Echocardiogram demonstrated normal LV systolic function. Postprocedure he continued complaining of severe headache. He had CTA of chest to rule out aortic dissection and CT head to rule out head bleed. None of these were shown. Patient symptoms are resolved. Following day he was doing well and and wanted to go home. He was discharged home in a stable condition on dual antiplatelet therapy. Physical Exam Narrative: GENERAL: Patient is alert, awake and oriented x3. [] NECK: No jugular vein distension. [] HEENT: No cyanosis. No icterus. No pallor. [] HEART: Regular S1 and S2. No murmur, rub or gallop. [] LUNGS: Clear to auscultate bilaterally. [] CENTRAL NERVOUS SYSTEM: Grossly nonfocal. [] EXTREMITIES: Lower extremities with no edema bilaterally. Discharge Data Studies Completed and Pending Completed Studies During Hospitalization Category Date Time Status CT head wo con* [id number] Stat Cat Scan 10/16/23 14:12 Completed CTA chest [CT angio chest w abd pel wo/w] Stat Cat Scan 10/16/23 14:29 Completed XR chest 1V portable [id number] Stat Exams 10/16/23 11:49 Completed CV carotid duplex BI* [id number] Stat Ultrasound 10/16/23 15:03 Completed US echo complete [CV. echo complete* [id number]] Routine Ultrasound 10/16/23 14:47 Completed US gall bladder [id number] Routine Ultrasound 10/17/23 06:00 Completed Pending at discharge Category Date Time Status HOSPICE LIAISON request for service Stat Exams 10/16/23 12:11 Taken CRP [C Reactive Protein] Routine Lab 10/16/23 11:58 Received Complete Blood Count w/Auto AM LABS Lab 10/18/23 04:00 Ordered Complete Blood Count w/Auto AM LABS Lab 10/19/23 04:00 Ordered Troponin(5th) 2 Hour. Timed Lab 10/16/23 13:58 Ordered Radiology Impressions Chest X-Ray 10/16/23 11:49 IMPRESSION: No acute findings. Head CT 10/16/23 14:12 IMPRESSION: 1. Moderate sinusitis. 2. Otherwise, negative contrast-enhanced CT of the brain. See above disclaimer regarding intracranial hemorrhage. Chest/Abdomen/Pelvis CT 10/16/23 14:29 IMPRESSION: 1. Acute appearing fractures of the lateral left 10 and 11 ribs. 2. A few 2 mm noncalcified solid pulmonary nodules. For patients at low risk (minimal or absent history of smoking and of other known risk factors), no routine follow-up is indicated. For patients at high risk (history of smoking or of other known risk factors), consider optional CT Chest at 12 IMPRESSION: 1. Lobulated soft tissue density projecting within the gallbladder. This is most likely noncalcified gallstones, but could be cholangiocarcinoma. Other possibilities include sludge and blood. Gallbladder ultrasound is recommended. 2. No other acute findings. 3. Additional details as above. Carotid Doppler Study 10/16/23 15:03 IMPRESSION: No carotid arterial stenosis. REFERENCES: SRU CRITERIA. The degree of internal carotid artery stenosis is based on criteria defined by the Society of Radiologists in Ultrasound (SRU). Normal is no stenosis. Mild is less than 50% stenosis. Moderate is 50-69% stenosis. Severe is greater than 69% stenosis to near occlusion. Near occlusion is a markedly narrowed lumen. Total occlusion is no detectable patent lumen. Laboratory Results WBC 13.33 10^3/uL (3.29-11.43) H 10/17/23 04:00 RBC 4.50 10^6/uL (3.85-5.65) 10/17/23 04:00 Hgb 14.30 g/dL (11.27-16.99) 10/17/23 04:00 Hct 41.9 % (37-53) 10/17/23 04:00 MCV 93.1 fl (82-101) 10/17/23 04:00 MCH 31.8 pg (27-33) 10/17/23 04:00 MCHC 34.1 g/dL (30-55) 10/17/23 04:00 RDW 12.9 % (12.1-15.1) 10/17/23 04:00 Plt Count 324 10^3/cmm (157-399) 10/17/23 04:00 MPV 8.8 fL (7.4-10.4) 10/17/23 04:00 Neut % (Auto) 64.4 % 10/17/23 04:00 Lymph % (Auto) 19.7 % 10/17/23 04:00 Warrick % (Auto) 13.2 % 10/17/23 04:00 Eos % (Auto) 1.7 % 10/17/23 04:00 Baso % (Auto) 0.5 % 10/17/23 04:00 Neut # (Auto) 8.59 10^3/uL (1.8-7.7) H 10/17/23 04:00 Lymph # (Auto) 2.6 10^3/uL (0.8-4.8) 10/17/23 04:00 Warrick # (Auto) 1.8 10^3/uL (0.2-0.9) H 10/17/23 04:00 Eos # (Auto) 0.2 10^3/uL (0.0-0.8) 10/17/23 04:00 Baso # (Auto) 0.1 10^3/uL (0.0-0.1) 10/17/23 04:00 Nucleated RBC % (auto) 0 % 10/17/23 04:00 Nucleated RBCs # 0.0 /100WBC 10/17/23 04:00 ESR 14 mm/hr (0-10) H 10/16/23 11:58 APTT 27.4 SECONDS (23.9-36.7) 10/16/23 17:43 D-Dimer 0.34 ug/mLFEU (0-0.59) 10/16/23 17:43 Sodium 135 mmol/L (136-145) L 10/17/23 04:00 Potassium 4.3 mmol/L (3.5-5.1) 10/17/23 04:00 Chloride 103 mmol/L (98-107) 10/17/23 04:00 Carbon Dioxide 25 mmol/L (22-29) 10/17/23 04:00 Anion Gap 11.3 (5-19) 10/17/23 04:00 BUN 8 mg/dL (6-20) 10/17/23 04:00 Creatinine 0.7 mg/dL (0.7-1.2) 10/17/23 04:00 GFR Calculation 119.4 mL/min (90-130) 10/17/23 04:00 Glucose 94 mg/dL (65-115) 10/17/23 04:00 Estimat Average Glucose 108 10/16/23 17:43 Hemoglobin A1c 5.4 % (4.0-6.0) 10/16/23 17:43 Calculated Osmolality 278 mOsm/kg (285-295) L 10/17/23 04:00 Calcium 8.4 mg/dL (8.5-10.5) L 10/17/23 04:00 Total Bilirubin 0.7 mg/dL (0.15-1.2) 10/17/23 04:00 AST 61 U/L (0-40) H 10/17/23 04:00 ALT 26 U/L (0-41) 10/17/23 04:00 Alkaline Phosphatase 53 U/L (40-130) 10/17/23 04:00 Troponin T Baseline 343 ng/L (0-15) H* 10/16/23 11:58 Troponin T Hi Sens 6Hr 957.4 ng/L (0-15) H 10/16/23 19:10 Troponin T Hi Sens 6Hr Delta 614.4 ng/L (0-12) H* 10/16/23 19:10 Total Protein 6.3 g/dL (6.6-8.7) L 10/17/23 04:00 Albumin 3.7 g/dL (3.5-5.2) 10/17/23 04:00 Globulin 2.6 g/dL (1.3-4.6) 10/17/23 04:00 Triglycerides 179 mg/dL (0-150) H 10/16/23 11:58 Cholesterol 221 mg/dL (0-200) H 10/16/23 11:58 LDL Cholesterol, Calc 148 mg/dL (50-129) H 10/16/23 11:58 HDL Cholesterol 37 mg/dL (60-100) L 10/16/23 11:58 LDL/HDL Ratio 4.00 RATIO (0.00-3.22) H 10/16/23 11:58 Cholesterol/HDL Ratio 5.97 mg/dL (1.0-5.00) H 10/16/23 11:58 Lipase 56 U/L (13-60) 10/16/23 11:58 Urine Opiates Screen Negative ng/mL (Negative) 10/16/23 19:45 Ur Barbiturates Screen Negative ng/mL (Negative) 10/16/23 19:45 Ur Phencyclidine Scrn Negative ng/mL (Negative) 10/16/23 19:45 Ur Amphetamines Screen Negative ng/mL (Negative) 10/16/23 19:45 U Benzodiazepines Scrn Negative ng/mL (Negative) 10/16/23 19:45 Urine Cocaine Screen Negative ng/mL (Negative) 10/16/23 19:45 U Marijuana (THC) Screen Negative ng/mL (Negative) 10/16/23 19:45 Vitals Last Vital Signs Temp 98.1 F 10/17/23 04:25 Pulse 77 10/17/23 05:55 Resp 17 10/16/23 23:28 BP 118/88 10/16/23 20:00 Pulse Ox 96 10/16/23 20:00 O2 Del Method Room Air 10/17/23 03:00 Discharge Plan Discharge Patient Disposition: Home Condition: Stable Prescriptions: New atorvastatin 40 mg Tablet 40 mg PO BEDTIME Qty: 90 3RF clopidogrel 75 mg Tablet 75 mg PO DAILY Qty: 90 3RF aspirin 81 mg Tablet,Delayed Release (Dr/Ec) 81 mg PO DAILY Qty: 90 3RF nitroglycerin 0.4 mg Tablet, Sublingual 0.4 mg sublingual Q5M PRN (Reason: Chest Pain) Qty: 30 0RF metoprolol tartrate 25 mg Tablet 25 mg PO BID@0900,2100 Qty: 90 3RF Continued Zyrtec 10 mg Tablet 10 mg PO DAILY Vitamin D With K Gummies 1 tab PO DAILY Advair HFA 115-21 mcg/actuation HFA aerosol inhaler 2 puff inhalation BID PRN (Reason: unknown) Rx Instructions: call if not affordable Discharge Orders: Discharge Order (Routine); Ordered 10/17/23 Ordered By: Nasir Aragon Other Ambulatory Orders: US gall bladder [id number] (Routine) Timeframe: 1 Week Facility: [facility] - Location: Radiology [facility] Ordered By: Shawnee Louise Referrals: Mari Miguel FNP [Primary Care Provider] - Sally Gutiérrez FNP [Nurse Practitioner] - 4-7 days (the office will call you with an appt) Discharge Diet: Cardiac Discharge Activity: Increase activity as tolerated Patient Instructions: Metoprolol (By mouth), Aspirin (By mouth), Nitroglycerin, Rapid Release (By mouth), Atorvastatin (By mouth), Clopidogrel (By mouth), Heart Attack (DC), Coronary Angioplasty (DC), Heart Healthy Diet (ED), Heart Healthy Diet (DC), Opioid Safety, Post Angiogram Home Care Instructions, Post Heart Attack Stoplight Discharge Attestations Time Spent in Discharge Care*: greater than 30 min Quality Metrics Clinical Quality Measures [ Acute Myocardial Infaction { Clinical Trial Participant: No; Contraindication to aspirin: None; Aspirin prescribed; Contraindication to statin: None; Statin prescribed; Contraindication to PCI: None; PCI performed;}] Coding Level of Care Code Acute Code for [facility] Diagnoses ST elevation myocardial infarction (STEMI) I21.3 Headache R51.9
[2023-10-17] MEDS: aspirin 81 mg EC Tablet PO (09:10)
[2023-10-17] MEDS: nicotine 21 mg Patch 1 PATCH TRANSDERMA (09:10)
[2023-10-17] MEDS: metoprolol tartrate 25 mg Tablet PO (09:10)
[2023-10-17] MEDS: clopidogrel 75 mg Tablet PO (09:10)
--- NOTE | 2023-10-17 10:31 | PC.NURSE ---
Discharge Note Patient discharged to [home] via [w/c to POV] accompanied by []. Discharge instructions reviewed with patient and/or entry level sales representative. Mobile pharmacy medications and/or prescriptions provided. Belongings/home medications returned.
== END 2023-10-17 10:32 | disposition home or self-care (01) | DRG 322 ==
LOC: ER 12:18 → CCL 12:18 → ICU 13:58
PROVIDERS: Internal Medicine; Admitting Provider Internal Medicine; Emergency Provider Emergency Medicine; PCP Registered Nurse; Visit Provider Internal Medicine
PROC: 027236Z Dilation of Coronary Artery, Three Arteries with Three Drug-eluting Intraluminal Devices, Percutaneous Approach (ICD-10-PCS; principal; 2023-10-16 12:00)
PROC: 027236Z Dilation of Coronary Artery, Three Arteries with Three Drug-eluting Intraluminal Devices, Percutaneous Approach (ICD-10-PCS; 2023-10-16 12:00)
DX: I21.09 ST elevation (STEMI) myocardial infarction involving other coronary artery of anterior wall (principal); F17.200 Nicotine dependence, unspecified, uncomplicated; R51.9 Headache, unspecified; K82.9 Disease of gallbladder, unspecified
CPT/HCPCS: 36415; 70450; 71045; 71275; 74178; 76705; 80053; 80061; 80306; 83036; 83690; 84484; 85025; 85347; 85378; 85651; 85730; 86140; 93005; 93306; 93454; 93880; 96361; 96365; 96372; 96374; 96376; 99152; 99153; 99285; C1725; C1769; C1874; C1887; C1894; C9600; C9601; J1644; J1650; J2250; J3010; J3490; J7030; Q9967

== ENCOUNTER → 2023-11-07 13:35 | Outpatient (BNVA) | payer SELFPAY | PROVIDERS: PCP Registered Nurse; Visit Provider Nurse Practitioner Family | DX: I21.3 ST elevation (STEMI) myocardial infarction of unspecified site (principal) | CPT/HCPCS: 36415; 80048 ==